=== PATIENT | male | born 1940 | race Caucasian/White ===

== ENCOUNTER 2016-12-26 12:04 | Emergency (ER) | payer OTHER, BC ==
[2016-12-26 12:17] VITALS: TEMP 97.4; BMI 19.2
[2016-12-26] MEDS ORDERED: LIDOCAINE HCL 2% JELLY (5 ML/TUBE) ONE ×3 (12:49→15:46)
[2016-12-26] MEDS ORDERED: ONDANSETRON 4 MG/2 ML VIAL IVPUSH ONE (13:13)
[2016-12-26] MEDS ORDERED: morphine CARPU-JECT 4 MG/1 ML DISP.SYRIN IVPUSH ONE ×3 (13:13→16:26)
--- NOTE | 2016-12-26 13:13 | PDOC ---
History of Present Illness - General History Source: Patient, Care Provider Exam Limitations: No Limitations - History of Present Illness Initial Comments: 12/26/16 14:48 The patient is a 76 year old male, with a significant past medical history of CAD, HTN, hyperlipidemia, and BPH, who presents to the emergency department sent by Dr. Obrien for urine retention. Patient is sent by doctor for Sánchez catheter. placement. As per Dr. Obrien, the patient had a green light on prostate 2 weeks ago. He denies chest pain, shortness of breath, headache and dizziness. He denies chills, nausea, vomit, diarrhea and constipation. PCP: Dr. Mcdaniel Urologist: Dr. Obrien <Orly Schneider - Last Filed: 12/26/16 16:42> <Rainer Zhang - Last Filed: 12/26/16 18:17> - General Chief Complaint: Urinary Problem Stated Complaint: PCP SENT, URINARY PROBLEM Time Seen by Provider: 12/26/16 13:05 Past History <Orly Schneider - Last Filed: 12/26/16 16:42> - Past Medical History Cardiac Disorders: Yes (CAD ) Disorders: Yes (urinary retention BPH ) HTN: Yes Hypercholesterolemia: Yes (HLD ) Kidney Stones: Yes Psychiatric Problems: No Suicide Attempt (Hx): No Seizures: No Thyroid Disease: No Lung CA: No - Surgical History Abdominal Surgery: (BPH) - Psycho/Social/Smoking Cessation Hx Anxiety: No Suicidal Ideation: No Smoking History: Never smoked Information on smoking cessation initiated: No Hx Alcohol Use: No Drug/Substance Use Hx: No Substance Use Type: None <Rainer Zhang - Last Filed: 12/26/16 18:17> - Past Medical History Allergies/Adverse Reactions: Allergies Allergy/AdvReac Type Severity Reaction Status Date / Time No Known Allergies Allergy Verified 12/26/16 12:13 Home Medications: Ambulatory Orders Amlodipine Besylate [Norvasc -] 5 mg PO DAILY 07/31/16 Rosuvastatin Calcium [Crestor] 10 mg PO DAILY 07/31/16 Carvedilol [Coreg -] 12.5 mg PO BID 08/04/16 Review of Systems - Review of Systems Able to Perform ROS?: Yes Comments:: 12/26/16 14:49 GENERAL/CONSTITUTIONAL: No fever or chills. No weakness. HEAD, EYES, EARS, NOSE AND THROAT: No change in vision. No ear pain or discharge. No sore throat. CARDIOVASCULAR: No chest pain or shortness of breath. RESPIRATORY: No cough, wheezing, or hemoptysis. GASTROINTESTINAL: No nausea, vomiting, diarrhea or constipation. GENITOURINARY: +urinary retention. No dysuria, frequency. MUSCULOSKELETAL: No joint or muscle swelling or pain. No neck or back pain. SKIN: No rash NEUROLOGIC: No headache, vertigo, loss of consciousness, or change in strength/ sensation. ENDOCRINE: No increased thirst. No abnormal weight change. HEMATOLOGIC/LYMPHATIC: No anemia, easy bleeding, or history of blood clots. ALLERGIC/IMMUNOLOGIC: No hives or skin allergy. <Orly Schneider - Last Filed: 12/26/16 16:42> *Physical Exam - Vital Signs Last Vital Signs Temp Pulse Resp BP Pulse Ox 97.4 F L 68 18 154/80 99 12/26/16 12:09 12/26/16 12:09 12/26/16 12:09 12/26/16 12:09 12/26/16 12:09 - Physical Exam Comments: 12/26/16 14:49 GENERAL: Awake, alert, and fully oriented, in no acute distress HEAD: No signs of trauma EYES: PERRLA, EOMI, sclera anicteric, conjunctiva clear ENT: Auricles normal inspection, hearing grossly normal, nares patent, oropharynx clear without exudates. Moist mucosa NECK: Normal ROM, supple, no lymphadenopathy, JVD, or masses LUNGS: Breath sounds equal, clear to auscultation bilaterally. No wheezes, and no crackles HEART: Regular rate and rhythm, normal S1 and S2, no murmurs, rubs or gallops ABDOMEN: Soft, nontender, normoactive bowel sounds. No guarding, no rebound. No masses EXTREMITIES: Normal range of motion, no edema. No clubbing or cyanosis. No cords, erythema, or tenderness NEUROLOGICAL: Cranial nerves II through XII grossly intact. Normal speech. SKIN: Warm, Dry, normal turgor, no rashes or lesions noted. <Orly Schneider - Last Filed: 12/26/16 16:42> - Vital Signs Last Vital Signs Temp Pulse Resp BP Pulse Ox 97.4 F L 68 18 154/80 99 12/26/16 12:09 12/26/16 12:09 12/26/16 12:09 12/26/16 12:09 12/26/16 12:09 <Rainer Zhang - Last Filed: 12/26/16 18:17> ED Treatment Course - Medications Given in the ED: ED Medications Discontinued Medications Generic Name Dose Route Start Last Admin Trade Name Santos PRN Reason Stop Dose Admin Lidocaine HCl 10 ml 12/26/16 13:18 12/26/16 13:22 Xylocaine 2% Uro-Jet W[place] 12/26/16 13:19 10 ml ONCE ONE Administration Morphine Sulfate 4 mg 12/26/16 13:13 12/26/16 13:42 Morphine Injection - IVPUSH 12/26/16 13:14 4 mg ONCE ONE Administration Ondansetron HCl 4 mg 12/26/16 13:13 12/26/16 13:42 Zofran Injection IVPUSH 12/26/16 13:14 4 mg ONCE ONE Administration <Orly Schneider - Last Filed: 12/26/16 16:42> Medical Decision Making - Medical Decision Making 12/26/16 14:20 76 year old male, with a significant past medical history of CAD, HTN, hyperlipidemia, and BPH, who presents to the emergency department sent by Dr. Obrien for urine retention. Dr. Obrien requested placement of Sánchez catheter with lidocaine bristoject. He also asked if UA is nitrate positive give abx, otherwise no abx. Patient also had green light on prostate [address] Zhang and nurse both attempted placement of Sánchez catheter, but patient is still in urinary retention after passing of several blood clots. Will contact Dr. Obrien for the case. Awaiting lab results. 12/26/16 14:40 A call was placed to Dr. Obrien at his service. Awaiting call back. 12/26/16 15:06 A second call was placed to Dr. Obrien. 12/26/16 15:[address] Obrien. He notes that he will present to the ED to place the Sánchez himself. 12/26/16 16:42 Patient is already on abx and should be dx home after he clears. U culture and UA will be sent. <Orly Schneider - Last Filed: 12/26/16 16:42> *DC/Admit/Observation/Transfer <Orly Schneider - Last Filed: 12/26/16 16:42> - Discharge Dispostion Admit: No <Rainer Zhang - Last Filed: 12/26/16 18:17> Diagnosis at time of Disposition: Hematuria, Acute retention of urine - Discharge Dispostion Disposition: HOME Condition at time of disposition: Good - Referrals Referrals: Ade Mcdaniel MD [Primary Care Provider] - Jorge Cheney MD [Staff Physician] - - Patient Instructions Printed Discharge Instructions: DI for Urinary Retention in Men Additional Instructions: Macario, So sorry you had to go through this today. I want you to follow Dr. Obrien' s instructions and to return to us if you have any problems. Otherwise follow up with him as planned. Best- Dr. Rainer Zhang
[2016-12-26] MEDS ORDERED: LIDOCAINE HCL 2% JELLY 10 ML CARTRIDGE PR ONE (13:18)
[2016-12-26] MEDS ORDERED: ONDANSETRON 4 MG/2 ML VIAL ONE (13:23)
[2016-12-26] MEDS ORDERED: morphine CARPU-JECT 4 MG/1 ML DISP.SYRIN ONE ×3 (13:23→16:24)
[2016-12-26] MEDS ORDERED: LIDOCAINE HCL 2% JELLY 10 ML CARTRIDGE ONE (13:45)
[2016-12-26] MEDS ORDERED: LORAZEPAM CARPU-JECT 2 MG/ML DISP.SYRIN ONE (16:24)
[2016-12-26] MEDS ORDERED: LORAZEPAM CARPU-JECT 2 MG/ML DISP.SYRIN IVPUSH ONE (16:26)
--- NOTE | 2016-12-26 16:50 | CON.GU ---
Consult - History of Present Illness History of Present Illness: 76 yo male s/p greenlight laser of prostate one week ago, bustillos removed 4 days ago-initially voiding well but now with inabiltiy to void, bustillos cath unable to be placed by ER. I was unable to place a coude cath at bedside with bending of cath at prostatic urethra. Cystoscopy performed at bedside and 20fr [place] tip cath placed over wire without difficulty - Alcohol/Substance Use Hx Alcohol Use: No - Smoking History Smoking history: Never smoked Home Medications - Allergies Allergies/Adverse Reactions: Allergies Allergy/AdvReac Type Severity Reaction Status Date / Time No Known Allergies Allergy Verified 12/26/16 12:13 - Home Medications Home Medications: Ambulatory Orders Amlodipine Besylate [Norvasc -] 5 mg PO DAILY 07/31/16 Rosuvastatin Calcium [Crestor] 10 mg PO DAILY 07/31/16 Carvedilol [Coreg -] 12.5 mg PO BID 08/04/16 Physical Exam- Vital Signs: Vital Signs Temperature 97.4 F L 12/26/16 12:09 Pulse Rate 68 12/26/16 12:09 Respiratory Rate 18 12/26/16 12:09 Blood Pressure 154/80 12/26/16 12:09 O2 Sat by Pulse Oximetry (%) 99 12/26/16 12:09 Problem List - Problems (1) Urinary retention Assessment/Plan: bustillos to [place] f/u office in one week Code(s): R33.9 - RETENTION OF URINE, UNSPECIFIED
[2016-12-26 17:01] LABS: URINE APPEARANCE CLEAR; URINE BILIRUBIN NEGATIVE (NEGATIVE); URINE COLOR RED; URINE GLUCOSE (UA) NEGATIVE (NEGATIVE); URINE KETONE TRACE (NEGATIVE); URINE NITRITE NEGATIVE (NEGATIVE); URINE UROBILINOGEN NEGATIVE E.U./dl (0.2-1.0)
[2016-12-26 17:04] LABS: URINE BLOOD 3+ (NEGATIVE); URINE PROTEIN 2+ (NEGATIVE)
[2016-12-26 17:05] LABS: URINE LEUK ESTERASE 1+ (NEGATIVE)
[2016-12-26 17:23] LABS: URINE MUCUS RARE; URINE RBC 615 /hpf (0-3); URINE WBC 119 /hpf (3-5)
[2016-12-26 18:27] VITALS: BP 144/78; PULSE 96
== END 2016-12-26 18:38 | disposition home or self-care (01) ==
LOC: JER 12:04
PROC: 0T9B70Z Drainage of Bladder with Drainage Device, Via Natural or Artificial Opening (ICD-10-PCS; principal; 2016-12-26)
DX: N40.1 Benign prostatic hyperplasia with lower urinary tract symptoms (principal); R33.8 Other retention of urine; I10 Essential (primary) hypertension; E78.5 Hyperlipidemia, unspecified
CPT/HCPCS: 51702; 81003; 81015; 87086; 99282-25

== ENCOUNTER 2018-08-10 08:45 | Day surgery (SDC) | payer OTHER, BC ==
[2018-08-09 11:46] VITALS: BMI 19.9
[2018-08-10] MEDS ORDERED: SUCCINYLCHOLINE CHLORIDE 200 MG/10 ML VIAL ONE (10:01)
[2018-08-10] MEDS ORDERED: PROPOFOL 20 ML ONE ×2 (10:01→10:20)
[2018-08-10] MEDS ORDERED: MIDAZOLAM HCL 2 MG/2 ML SINGLE DOSE VIAL ONE (10:01)
[2018-08-10] MEDS ORDERED: ONDANSETRON 4 MG/2 ML VIAL IVPUSH PRN (11:19)
[2018-08-10] MEDS ORDERED: oxyCODONE HCL 5 MG TABLET PO PRN ×2 (11:19→11:23)
--- NOTE | 2018-08-10 11:28 | OP ---
Operative Note - Note: Operative Date: 08/10/18 Pre-Operative Diagnosis: BPH with obstruction Operation: bipolar TURP Post-Operative Diagnosis: Same as Pre-op Surgeon: Austin Obrien Anesthesia: Spinal Specimens Removed: prostate chips Estimated Blood Loss (mls): 5 Drains & Tubes with Location: 24fr bustillos Operative Report Dictated: Yes
[2018-08-10] MEDS ORDERED: LACTATED RINGERS SOLUTION 1,000 ML IV SCH (11:30)
[2018-08-10] MEDS ORDERED: DEXTROSE 5%-0.45% SALINE 1,000 ML IV SCH (11:30)
--- NOTE | 2018-08-10 12:59 | OP ---
DATE OF OPERATION: 08/10/2018 PREOPERATIVE DIAGNOSIS: Urinary retention, bladder neck obstruction. POSTOPERATIVE DIAGNOSIS: Urinary retention, bladder neck obstruction. PROCEDURE: Cystoscopy, bipolar transurethral resection of the prostate. SURGEON: Sera Villar MD INDICATION: Patient is a 78-year-old male who underwent recent cystoscopy, dilation of bladder neck contracture. After reviewing the treatment options, he elected to undergo TURP in an effort to minimize the chance of recurrence. Risks, benefits, and alternatives discussed including bleeding, infection, impotence, incontinence, stricture formation, potential need for additional procedure, potential injury to adjacent organs and retrograde ejaculation. DESCRIPTION OF PROCEDURE: After informed consent was obtained, the patient was taken to the OR, placed supine on the table. After cardiac monitoring administered, a spinal anesthetic was then given. He was prepped and draped in the dorsal lithotomy position. He was given 500 mg of Levaquin IV. The Sánchez catheter was removed, and a resectoscope with visual obturator was inserted into the urethra without difficulty. Anterior urethra was normal. The prostatic urethra was 3 cm and visually occlusive. The bladder was visualized. No tumors or stones were noted in the bladder. At this point, using the loop electrode, prostate tissue was resected circumferentially starting at the bladder neck and ending 1 cm before the verumontanum to minimize the chance of incontinence. The tissue was resected circumferentially until a wide-open channel was created. All bleeding sites were fulgurated, and all prostate chips removed with the [employer] evacuator. With the resectoscope situated just past the verumontanum, looking into the bladder, there was a wide-open channel noted. No injury to any adjacent structures. Bilateral ureteral orifices were seen with normal efflux. Resectoscope was then removed, and a 24-[place] Sánchez was then placed to straight drainage. Clear urine was retrieved. The patient awoke from anesthesia and transferred to the recovery room in stable condition. There were no complications. Estimated blood loss was minimal. SERA VILLAR M.D. SUMMER/[id number]
[2018-08-10 15:54] VITALS: TEMP 97.8
[2018-08-10 15:58] VITALS: PULSE 56
[2018-08-10 16:38] VITALS: BP 135/80
--- NOTE | 2018-08-11 15:31 | PATH ---
Surgical Pathology Report Patient Name: MINERVA CASTILLO [facility]. Rec. #: [id number] /Age/Gender: 1940 (Age: 78) / M Account: [id number] Location: [facility] SURGICAL Taken: 08/10/2018 Received: 08/10/2018 Reported: 08/11/2018 Physicians: Austin Obrien M.D. Specimen(s) Received PROSTATE CHIPS Clinical History BPH Final Diagnosis PROSTATE TISSUE, TRANSURETHRAL RESECTION OF THE PROSTATE: BENIGN PROSTATE TISSUE SHOWING STROMAL AND GLANDULAR HYPERPLASIA, ACUTE AND CHRONIC PROSTATITIS. ADJACENT UROTHELIAL MUCOSA SHOWING ACUTE AND CHRONIC INFLAMMATION WITH FOCAL SQUAMOUS METAPLASIA, CYSTITIS CYSTICA AND CYSTITIS GLANDULARIS. Electronically Signed Maren Bran M.D. Gross Description Received in formalin labeled "prostate tissue," is a 5 g, 7.0 x 5.0 x 0.6 cm aggregate of goldberg, firm to rubbery portions of tissue, consistent with prostate chips. The specimen is entirely submitted in 7 cassettes. /08/10/2018 saudi/08/10/2018
== END 2018-08-10 16:46 | disposition home or self-care (01) ==
LOC: JASU-SURG 08:45
PROVIDERS: ATTEND Urology
PROC: 0TJB8ZZ Inspection of Bladder, Via Natural or Artificial Opening Endoscopic (ICD-10-PCS; 2018-08-10)
PROC: 0VT08ZZ Resection of Prostate, Via Natural or Artificial Opening Endoscopic (ICD-10-PCS; principal; 2018-08-10 10:00)
DX: N32.0 Bladder-neck obstruction (principal); R33.8 Other retention of urine; N40.1 Benign prostatic hyperplasia with lower urinary tract symptoms
CPT/HCPCS: 88305-TC; 94760

== ENCOUNTER 2018-10-18 10:40 | Day surgery (SDC) | payer OTHER, BC ==
[2018-10-17 17:30] VITALS: BMI 19.8
[2018-10-18] MEDS ORDERED: ONDANSETRON 4 MG/2 ML VIAL IVPUSH PRN (11:46)
[2018-10-18] MEDS ORDERED: LACTATED RINGERS SOLUTION 1,000 ML IV SCH (12:00)
[2018-10-18] MEDS ORDERED: BUPIVACAINE HCL/PF 0.5% (5MG/ML) 10 ML VIAL ONE (14:52)
[2018-10-18] MEDS ORDERED: LIDOCAINE HCL 1%, 10 MG/ML (20ML VIAL) ONE (14:52)
[2018-10-18] MEDS ORDERED: ceFAZolin SODIUM 1 GM VIAL IVPB ONE (14:57)
[2018-10-18] MEDS ORDERED: KETOROLAC TROMETHAMINE 30 MG/1 ML VIAL ONE (15:08)
[2018-10-18] MEDS ORDERED: ePHEDrine SULFATE 50 MG/1 ML AMPULE ONE (15:11)
--- NOTE | 2018-10-18 15:45 | OP ---
Operative Note - Note: Operative Date: 10/18/18 Pre-Operative Diagnosis: umbilical hernia Operation: open repair for umbilical hernia Post-Operative Diagnosis: Same as Pre-op Surgeon: Vasyl Arevalo Anesthesia: General Estimated Blood Loss (mls): 5
[2018-10-18] MEDS ORDERED: ACETAMINOPHEN WITH CODEINE 300MG/30MG TABLET PO PRN (15:46)
[2018-10-18 17:25] VITALS: TEMP 97.3
[2018-10-18 18:04] VITALS: BP 133/78; PULSE 56
--- NOTE | 2018-10-18 18:21 | OP ---
DATE OF OPERATION: 10/18/2018 PREOPERATIVE DIAGNOSIS: Umbilical hernia. POSTOPERATIVE DIAGNOSIS: Umbilical hernia. PROCEDURE: Open repair of umbilical hernia. SURGEON: Vasyl Arevalo MD COMPLICATIONS: None. BLEEDING: Minimal. CONDITION: Patient tolerated the procedure well. INDICATIONS: This is a 78-year-old male who presents with umbilical hernia for elective repair. Risks and benefits were discussed. Options including the use of mesh and laparoscopy were discussed. He agreed to proceed. DESCRIPTION OF PROCEDURE: He was brought to the operating room. He was placed in the supine position. After induction of general anesthesia, he was prepped and draped in the usual sterile fashion. A periumbilical incision was performed approximately 3 cm using a scalpel. Dissection was carried through the subcutaneous tissues. The umbilical stump was dissected from the threshold with a Rachel clamp and then divided. The hernia defect had a very small neck of approximately less than 1 cm. The repair was done using 2-0 Prolene suture in an interrupted fashion. A total of 4 sutures were used. The final check for hemostasis was performed. The skin of the umbilicus was then repositioned back to the fascia using 3-0 Vicryl suture. The 3-0 Vicryl suture was also used in an interrupted fashion to approximate the subcutaneous tissues and 4-0 Biosyn was used to close the skin in a subcuticular fashion. Dermabond was applied. The patient was returned to the recovery room, awake, alert, and in stable condition. Tolerated the procedure well. Garret [id number]
== END 2018-10-18 18:20 | disposition home or self-care (01) ==
LOC: JASUSAT 10:40
PROVIDERS: ATTEND Surgery
PROC: 0WQF0ZZ Repair Abdominal Wall, Open Approach (ICD-10-PCS; principal; 2018-10-18 12:00)
DX: K42.9 Umbilical hernia without obstruction or gangrene (principal)
CPT/HCPCS: 94010; 94760

== ENCOUNTER 2021-06-20 22:39 | Emergency (ER) | payer OTHER, BC ==
[2021-06-20 22:44] VITALS: TEMP 98.4; BMI 21.5
[2021-06-21] MEDS ORDERED: POLYETHYLENE GLYCOL 3350 119 GM BTL PO ONE (00:25)
[2021-06-21] MEDS ORDERED: ACETAMINOPHEN 1000 MG/100 ML VIAL (NON FORMULARY) IVPB ONE (00:27)
[2021-06-21 01:10] LABS: BASO % 0.5 % (0-2.0); EOS % 2.7 % (0-4.5); HEMATOCRIT 39.1 % (35.4-49); HEMOGLOBIN 13.1 GM/dL (11.7-16.9); LYMPH % 18.1 % (8-40); MCH 27.5 pg (25.7-33.7); MCHC 33.4 g/dl (32.0-35.9); MEAN CELL VOLUME 82.3 fl (80-96); MEAN PLT VOLUME 7.4 fl (7.5-11.1); MONO % 12.7 % (3.8-10.2); PLATELET COUNT 222 10^3/uL (134-434); RBC 4.74 M/mm3 (4.00-5.60); RDW 14.9 % (11.9-15.9); WHITE BLOOD COUNT 8.4 K/mm3 (4.0-10.0)
[2021-06-21] MEDS ORDERED: POLYETHYLENE GLYCOL (HEALTHYLAX) 3350 17 GM PACKET ONE (01:11)
[2021-06-21] MEDS ORDERED: ACETAMINOPHEN INJECTION 100 ML IVPB ONE (01:11)
[2021-06-21] MEDS ORDERED: LIDOCAINE 5% TOPICAL PATCH TP ONE (01:28)
[2021-06-21] MEDS ORDERED: METHOCARBAMOL 500 MG TABLET PO ONE (01:28)
[2021-06-21 01:31] LABS: ALBUMIN 3.8 g/dl (3.4-5.0); BLOOD UREA NITROGEN 14.2 mg/dL (7-18)
[2021-06-21] MEDS ORDERED: LIDOCAINE 5% TOPICAL PATCH ONE (01:33)
[2021-06-21] MEDS ORDERED: METHOCARBAMOL 500 MG TABLET ONE (01:33)
[2021-06-21 01:34] LABS: CREATININE 0.8 mg/dL (0.55-1.3)
[2021-06-21 01:36] LABS: BILIRUBIN,TOTAL 0.4 mg/dL (0.2-1); TOT PROT 7.6 g/dl (6.4-8.2)
[2021-06-21 02:48] VITALS: BP 129/85; PULSE 77
[2021-06-21] MEDS ORDERED: LIDOCAINE PATCH REMOVAL MC ONE (14:00)
== END 2021-06-21 05:15 | disposition home or self-care (01) ==
LOC: JER 22:39
PROC: 3E0333Z Introduction of Anti-inflammatory into Peripheral Vein, Percutaneous Approach (ICD-10-PCS; principal; 2021-06-20)
DX: M54.32 Sciatica, left side (principal)
CPT/HCPCS: 36415; 71275-TC; 74174-TC; 80053; 82550; 84484; 85025; 93005; 93010; 99285-25; J0131; Q9967

== ENCOUNTER 2023-11-18 13:06 | Emergency (ER) | payer OTHER, BC ==
[2023-11-18 13:20] VITALS: BP 127/82; PULSE 73; RESP 18; TEMP 99.2; BMI 20.9
== END 2023-11-18 16:03 | disposition home or self-care (01) ==
LOC: JERFT 13:06
DX: R05.1 Acute cough (principal); R50.9 Fever, unspecified; R09.81 Nasal congestion; J18.9 Pneumonia, unspecified organism; Z20.822 Contact with and (suspected) exposure to COVID-19
CPT/HCPCS: 0241U-QW; 71046-TC-FY; 99284-25

== ENCOUNTER 2024-04-16 04:34 | Day surgery (SDC) | payer OTHER, BC ==
[2024-04-10 12:24] VITALS: BMI 20.5
[2024-04-16] MEDS ORDERED: FENTANYL CITRATE/PF 50 MCG/ML VIAL ONE ×2 (11:59→13:58)
[2024-04-16] MEDS ORDERED: PROPOFOL 20 ML ONE (11:59)
[2024-04-16] MEDS ORDERED: MIDAZOLAM HCL 2 MG/2 ML SINGLE DOSE VIAL ONE (11:59)
[2024-04-16] MEDS ORDERED: ONDANSETRON 4 MG/2 ML VIAL IVPUSH PRN (13:07)
[2024-04-16] MEDS: LACTATED RINGERS SOLUTION 1,000 ML IV SCH (15:19)
[2024-04-16 15:36] VITALS: RESP 16; TEMP 97.6
[2024-04-16 16:13] VITALS: BP 168/83; PULSE 56
== END 2024-04-16 16:42 | disposition home or self-care (01) ==
LOC: JASU-SURG 04:34
PROVIDERS: ATTEND Urology
PROC: 0T7D8ZZ Dilation of Urethra, Via Natural or Artificial Opening Endoscopic (ICD-10-PCS; principal; 2024-04-16 11:00)
PROC: 0TCD8ZZ Extirpation of Matter from Urethra, Via Natural or Artificial Opening Endoscopic (ICD-10-PCS; 2024-04-16 11:00)
PROC: 0VT08ZZ Resection of Prostate, Via Natural or Artificial Opening Endoscopic (ICD-10-PCS; 2024-04-16 11:00)
DX: N35.919 Unspecified urethral stricture, male, unspecified site (principal); N21.1 Calculus in urethra; N40.0 Benign prostatic hyperplasia without lower urinary tract symptoms; N31.9 Neuromuscular dysfunction of bladder, unspecified
CPT/HCPCS: 36415; 82360; 88305-TC; 94760; C1758

== ENCOUNTER 2024-08-19 14:19 | Emergency (ER) | payer OTHER, BC ==
[2024-08-19 14:35] VITALS: BP 162/86; PULSE 60; RESP 18; TEMP 97.1; BMI 20.5
[2024-08-19] MEDS ORDERED: ACETAMINOPHEN 500 MG TABLET (FP) ONE (15:16)
[2024-08-19] MEDS: ACETAMINOPHEN 500 MG TABLET (FP) PO ONE (15:20)
== END 2024-08-19 16:40 | disposition home or self-care (01) ==
LOC: JER 14:19 → JERFT 14:19
DX: S69.92XA Unspecified injury of left wrist, hand and finger(s), initial encounter (principal); W01.0XXA Fall on same level from slipping, tripping and stumbling without subsequent striking against object, initial encounter
CPT/HCPCS: 73110-TC-LT-FY; 99283-25

== ENCOUNTER 2025-06-04 10:59 | Inpatient (IN) | payer OTHER, BC ==
[2025-06-04] MEDS ORDERED: ACETAMINOPHEN INJECTION 100 ML ONE (12:38)
[2025-06-04] MEDS: ACETAMINOPHEN 1000 MG/100 ML BAG IVPB ONE (12:45)
[2025-06-04] MEDS ORDERED: ACETAMINOPHEN 500 MG TABLET (FP) PO PRN (12:49)
[2025-06-04 12:58] LABS: ABSOLUTE IMMATURE GRANULOCYTES 0.02 x10^3/uL (0.0-0.031); BASOPHILS # 0.03 x10^3/uL (0.01-0.08); EOSINOPHIL % 0.6 % (0.8-7.0); EOSINOPHILS # 0.06 x10^3/uL (0.04-0.54); MCHC 31.4 g/dl (32.3-36.5); MEAN CELL VOLUME 85.7 fl (79.0-92.2); MEAN PLT VOLUME 10.5 fl (9.4-12.4); MONOCYTE # 0.87 x10^3/uL (0.30-0.82); MONOCYTE % 9.0 % (5.3-12.2); RDW 14.6 % (12.6-16.6)
[2025-06-04 13:05] VITALS: BMI 20.7
[2025-06-04 13:09] LABS: INR 1.1 (0.83-1.09); PROTHROMBIN TIME (PATIENT) 12.1 SEC (9.7-13.0)
[2025-06-04 13:11] LABS: ACTIVATED PTT 26.3 SECONDS (25.2-36.5)
[2025-06-04] MEDS ORDERED: MORPHINE SULFATE 2 MG/ML SYRINGE ONE (13:22)
[2025-06-04] MEDS: morphine CARPU-JECT 2 MG/1 ML DISP.SYRIN IVPUSH PRN (13:28)
[2025-06-04 13:43] LABS: CO2 29.0 mmol/L (21-32); GLUCOSE,RANDOM 117.0 mg/dL (74-106)
[2025-06-04 13:46] LABS: CREATININE 0.8 mg/dL (0.55-1.3); SGOT/AST 19.0 U/L (15-37); SGPT/ALT 27.0 U/L (13-61)
[2025-06-04 13:47] LABS: TOT PROT 7.2 g/dl (6.4-8.2)
[2025-06-04 13:49] LABS: ALK PHOS 53.0 U/L (45-117)
[2025-06-04] MEDS ORDERED: ACETAMINOPHEN 1000 MG/100 ML BAG IVPB PRN (14:06)
[2025-06-04] MEDS ORDERED: amLODIPine BESYLATE 5 MG TABLET (FP) ONE (14:52)
[2025-06-04] MEDS ORDERED: PANTOPRAZOLE 40 MG TABLET PO ONE (14:53)
[2025-06-04] MEDS: PANTOPRAZOLE 40 MG TABLET PO SCH (14:56)
[2025-06-04] MEDS: amLODIPine BESYLATE 5 MG TABLET (FP) PO SCH (14:56)
[2025-06-04] MEDS ORDERED: HEPARIN NA (PORCINE) 5,000 UNITS/ML 1ML VIAL SQ SCH (22:00)
[2025-06-04] MEDS: ROSUVASTATIN CA 10 MG TABLET PO SCH (22:52)
[2025-06-04] MEDS: CARVEDILOL 12.5 MG TABLET (FP) PO SCH (22:52)
[2025-06-04] MEDS: HEPARIN NA (PORCINE) 5,000 UNITS/ML 1ML VIAL SQ SCH (22:52)
[2025-06-05 08:27] LABS: ABSOLUTE IMMATURE GRANULOCYTES 0.04 x10^3/uL (0.0-0.031); BASOPHILS # 0.02 x10^3/uL (0.01-0.08); EOSINOPHIL % 2.2 % (0.8-7.0); EOSINOPHILS # 0.19 x10^3/uL (0.04-0.54); MCHC 31.7 g/dl (32.3-36.5); MEAN CELL VOLUME 85.0 fl (79.0-92.2); MEAN PLT VOLUME 11.1 fl (9.4-12.4); MONOCYTE # 0.83 x10^3/uL (0.30-0.82); MONOCYTE % 9.5 % (5.3-12.2); RDW 14.6 % (12.6-16.6)
[2025-06-05 08:50] LABS: GLUCOSE,RANDOM 111.0 mg/dL (74-106)
[2025-06-05] MEDS: TAMSULOSIN HCL 0.4 MG CAP PO SCH (08:50)
[2025-06-05 08:54] LABS: CREATININE 0.7 mg/dL (0.55-1.3); SGOT/AST 18.0 U/L (15-37); SGPT/ALT 18.0 U/L (13-61)
[2025-06-05 08:55] LABS: TOT PROT 6.0 g/dl (6.4-8.2)
[2025-06-05 08:56] LABS: ALK PHOS 41.0 U/L (45-117)
[2025-06-05 09:43] LABS: CO2 26.0 mmol/L (21-32)
[2025-06-05] MEDS: KCL 10 MEQ IVPB 10 MEQ/100 ML INFUS.BAG IVPB SCH (09:55)
[2025-06-05] MEDS: morphine CARPU-JECT 2 MG/1 ML DISP.SYRIN IVPUSH PRN ×2 (13:47→21:52)
[2025-06-05] MEDS ORDERED: PROPOFOL 20 ML ONE (16:44)
[2025-06-05] MEDS ORDERED: MIDAZOLAM HCL 2 MG/2 ML SINGLE DOSE VIAL ONE (17:04)
[2025-06-05] MEDS ORDERED: BUPIVACAINE HCL/PF 0.5% (5MG/ML) 10 ML VIAL ONE (17:04)
[2025-06-05] MEDS ORDERED: ONDANSETRON 4 MG/2 ML VIAL ONE (17:04)
[2025-06-05] MEDS ORDERED: TRANEXAMIC ACID 1000 MG/10 ML VIAL ONE (17:24)
[2025-06-05] MEDS ORDERED: ONDANSETRON 4 MG/2 ML VIAL IVPUSH PRN (18:25)
[2025-06-05] MEDS: LACTATED RINGERS SOLUTION 1,000 ML IV SCH (18:47)
[2025-06-05] MEDS: CARVEDILOL 12.5 MG TABLET (FP) PO SCH (21:52)
[2025-06-05] MEDS: ROSUVASTATIN CA 10 MG TABLET PO SCH (21:52)
[2025-06-05] MEDS: CEFAZOLIN 1 GM in DEXTROSE 5%-WATER - 50 ML IVPB SCH (22:51)
[2025-06-06] MEDS: MELATONIN 5 MG TABLETS PO ONE (04:40)
[2025-06-06] MEDS: amLODIPine BESYLATE 5 MG TABLET (FP) PO SCH (10:43)
[2025-06-06] MEDS: TAMSULOSIN HCL 0.4 MG CAP PO SCH (10:43)
[2025-06-06] MEDS: PANTOPRAZOLE 40 MG TABLET PO SCH (10:43)
[2025-06-06] MEDS: ENOXAPARIN NA (PORCINE) 40 MG/0.4 ML DISP.SYRIN SQ SCH (10:43)
[2025-06-06 10:45] LABS: ABSOLUTE IMMATURE GRANULOCYTES 0.02 x10^3/uL (0.0-0.031); BASOPHILS # 0.02 x10^3/uL (0.01-0.08)
[2025-06-06 10:51] LABS: EOSINOPHIL % 3.2 % (0.8-7.0); EOSINOPHILS # 0.27 x10^3/uL (0.04-0.54); MCHC 30.9 g/dl (32.3-36.5); MEAN CELL VOLUME 86.4 fl (79.0-92.2); MONOCYTE # 0.80 x10^3/uL (0.30-0.82); MONOCYTE % 9.6 % (5.3-12.2); RDW 14.4 % (12.6-16.6)
[2025-06-06 11:22] LABS: MEAN PLT VOLUME 11.9 fl (9.4-12.4)
[2025-06-06 17:34] LABS: CO2 29.0 mmol/L (21-32); GLUCOSE,RANDOM 110.0 mg/dL (74-106)
[2025-06-06 17:37] LABS: CREATININE 0.6 mg/dL (0.55-1.3)
[2025-06-07] MEDS: ACETAMINOPHEN 500 MG TABLET (FP) PO PRN (01:27)
[2025-06-07 09:11] LABS: ABSOLUTE IMMATURE GRANULOCYTES 0.02 x10^3/uL (0.0-0.031); BASOPHILS # 0.02 x10^3/uL (0.01-0.08); EOSINOPHIL % 4.0 % (0.8-7.0); EOSINOPHILS # 0.28 x10^3/uL (0.04-0.54); MCHC 31.4 g/dl (32.3-36.5); MEAN CELL VOLUME 85.0 fl (79.0-92.2); MEAN PLT VOLUME 10.7 fl (9.4-12.4); MONOCYTE # 0.88 x10^3/uL (0.30-0.82); MONOCYTE % 12.6 % (5.3-12.2); RDW 14.1 % (12.6-16.6)
[2025-06-07 09:50] LABS: CO2 30.0 mmol/L (21-32); GLUCOSE,RANDOM 108.0 mg/dL (74-106)
[2025-06-07 09:53] LABS: CREATININE 0.6 mg/dL (0.55-1.3)
[2025-06-08 08:10] LABS: ABSOLUTE IMMATURE GRANULOCYTES 0.03 x10^3/uL (0.0-0.031); BASOPHILS # 0.02 x10^3/uL (0.01-0.08); EOSINOPHIL % 4.4 % (0.8-7.0); EOSINOPHILS # 0.28 x10^3/uL (0.04-0.54); MCHC 31.7 g/dl (32.3-36.5); MEAN CELL VOLUME 84.5 fl (79.0-92.2); MEAN PLT VOLUME 10.3 fl (9.4-12.4); MONOCYTE # 1.00 x10^3/uL (0.30-0.82); MONOCYTE % 15.8 % (5.3-12.2); RDW 13.9 % (12.6-16.6)
[2025-06-08 08:48] LABS: CO2 32.0 mmol/L (21-32); GLUCOSE,RANDOM 123.0 mg/dL (74-106)
[2025-06-08 08:51] LABS: CREATININE 0.6 mg/dL (0.55-1.3)
[2025-06-08] MEDS: KCL 10 MEQ IVPB 10 MEQ/100 ML INFUS.BAG IVPB SCH (10:57)
[2025-06-08 22:12] LABS: IRON SERUM 21.0 ug/dL (50-175)
[2025-06-09 05:02] VITALS: RESP 18
[2025-06-09 09:32] LABS: ABSOLUTE IMMATURE GRANULOCYTES 0.02 x10^3/uL (0.0-0.031); BASOPHILS # 0.02 x10^3/uL (0.01-0.08); EOSINOPHIL % 5.9 % (0.8-7.0); EOSINOPHILS # 0.40 x10^3/uL (0.04-0.54); MCHC 32.1 g/dl (32.3-36.5); MEAN CELL VOLUME 84.6 fl (79.0-92.2); MEAN PLT VOLUME 10.7 fl (9.4-12.4); MONOCYTE # 0.84 x10^3/uL (0.30-0.82); MONOCYTE % 12.5 % (5.3-12.2); RDW 13.9 % (12.6-16.6)
[2025-06-09 09:55] LABS: CO2 31.0 mmol/L (21-32); GLUCOSE,RANDOM 144.0 mg/dL (74-106)
[2025-06-09 09:58] LABS: CREATININE 0.5 mg/dL (0.55-1.3)
[2025-06-09] MEDS: IRON SUCROSE INJECTION 300 MG in SODIUM CHLORIDE 250 ML IVPB ONE (11:45)
[2025-06-10 09:38] LABS: ABSOLUTE IMMATURE GRANULOCYTES 0.03 x10^3/uL (0.0-0.031); BASOPHILS # 0.03 x10^3/uL (0.01-0.08); EOSINOPHIL % 4.5 % (0.8-7.0); EOSINOPHILS # 0.33 x10^3/uL (0.04-0.54); MCHC 31.9 g/dl (32.3-36.5); MEAN CELL VOLUME 85.0 fl (79.0-92.2); MEAN PLT VOLUME 10.3 fl (9.4-12.4); MONOCYTE # 0.90 x10^3/uL (0.30-0.82); MONOCYTE % 12.3 % (5.3-12.2); RDW 13.9 % (12.6-16.6)
[2025-06-10 10:38] LABS: CO2 31.0 mmol/L (21-32); GLUCOSE,RANDOM 94.0 mg/dL (74-106)
[2025-06-10 10:41] LABS: CREATININE 0.5 mg/dL (0.55-1.3)
[2025-06-10] MEDS: POTASSIUM CHLORIDE ORAL LIQUID 20 MEQ/15 ML PO ONE (12:05)
[2025-06-10 19:07] VITALS: BP 147/93; PULSE 94; TEMP 98.1
== END 2025-06-10 19:59 | DRG 482 ==
LOC: JER 10:59 → JERBED 12:49 → J6S 16:59
PROVIDERS: ADMIT Internal Medicine; ATTEND Internal Medicine
PROC: 0QS606Z Reposition Right Upper Femur with Intramedullary Internal Fixation Device, Open Approach (ICD-10-PCS; principal; 2025-06-05 16:00)
DX: S72.114A Nondisplaced fracture of greater trochanter of right femur, initial encounter for closed fracture (principal); I10 Essential (primary) hypertension; N40.0 Benign prostatic hyperplasia without lower urinary tract symptoms; E78.5 Hyperlipidemia, unspecified; I25.10 Atherosclerotic heart disease of native coronary artery without angina pectoris; J44.9 Chronic obstructive pulmonary disease, unspecified; I71.20 Thoracic aortic aneurysm, without rupture, unspecified; W01.0XXA Fall on same level from slipping, tripping and stumbling without subsequent striking against object, initial encounter; Y93.89 Activity, other specified; Y92.009 Unspecified place in unspecified non-institutional (private) residence as the place of occurrence of the external cause; Y99.8 Other external cause status
CPT/HCPCS: 36415; 72170-TC-FY; 73521-TC-FY; 73718-TC-RT; 76000-TC-FY; 80048; 80053; 82728; 83540; 83550; 83735; 84100; 85025; 85610; 85730; 86850; 86900; 86901; 93005; 93010; 93306-TC; 94010; 94760; 97116-GP; 97162-GP; 99285-25; C1713; J1756